=== PATIENT | female | born 1960 | race Caucasian/White ===

== ENCOUNTER 2017-12-01 21:00 | Emergency (ER) | payer OTHER ==
[2017-12-01] MEDS ORDERED: DIPHTH,PERTUSS(ACELL),TET 0.5 ML DISP.SYRIN IM ONE (21:49)
--- NOTE | 2017-12-01 21:49 | PDOC ---
History of Present Illness - General Chief Complaint: Injury Stated Complaint: RIGHT CALF PUNCTURE WOUND Time Seen by Provider: 12/01/17 21:49 History Source: Patient Exam Limitations: No Limitations - History of Present Illness Initial Comments: 12/01/17 22:57 This is a 56-year-old female who comes in complaining of a puncture wound to her lateral right calf. Patient was taking out the garbage when something sharp in the garbage punctured her leg. Patient comes in for a tetanus shot. PAST MEDICAL HISTORY: no significant history PAST SURGICAL HISTORY: no significant history FAMILY HISTORY: no pertinant history SOCIAL HISTORY: Pt lives with family and is employed. MEDICATIONS: reviewed ALLERGIES: As per nursing notes Review of Systems General: No fevers or chills, no weakness, no weight loss HEENT: No change in vision. No sore throat,. No ear pain CardioVascular: No chest pain or shortness of breath Respiratory:No cough, or wheezing. Gastrointestinal: no nausea, vomitting, diarrhea or constipation, No rectal bleeding Genitourinary: No dysuria, hematuria, or frequency Musculoskeletal: No joint or muscle pain or swelling Neurologic: No headache, vertigo, dizziness or loss of consciousness Psychiatric: nor depression Skin: Puncture wound as per history of present illness Endocrine: no increased thirst or abnormal weight change Allergic: no skin or latex allergy All other systems reviewed and normal GENERAL: The patient is awake, alert, and fully oriented, in no acute distress. HEAD: Normal with no signs of trauma. EYES: Pupils equal, round and reactive to light, extraocular movements intact, sclera anicteric, conjunctiva clear. EXTREMITIES: Right thigh: There is a superficial puncture wound approximately one half of a centimeter in length. There is no active bleeding at this time. Neurovascular distal intact. NEUROLOGICAL: Normal speech, normal gait. grossly intact PSYCH: Normal mood, normal affect. SKIN: Warm, Dry, normal turgor, no rashes or lesions noted. Procedure note Puncture wound was loosely closed with a Steri-Strip patient tolerated well Assessment and plan: This is a 56-year-old female with a puncture wound to her lateral right leandro. Puncture wound was loosely closed with a Steri-Strip as I did not want to close it tightly given the nature of the injury which was dirty garbage. Patient was updated on her tetanus shot and started on Keflex to prevent infection. Patient has a primary care doctor to follow-up with. Past History - Past Medical History Allergies/Adverse Reactions: Allergies Allergy/AdvReac Type Severity Reaction Status Date / Time No Known Allergies Allergy Verified 12/01/17 21:54 Home Medications: Ambulatory Orders Amlodipine Besylate [Norvasc -] 10 mg PO DAILY 12/01/17 Aspirin Coated [Ecotrin -] 81 mg PO DAILY 12/01/17 Cephalexin [Keflex] 500 mg PO QID #20 capsule 12/01/17 Rosuvastatin Calcium [Crestor] 5 mg PO DAILY 12/01/17 *DC/Admit/Observation/Transfer Diagnosis at time of Disposition: Puncture wound of leg not thigh, right Qualifiers: Encounter type: initial encounter Qualified Code(s): S81.831A - Puncture wound without foreign body, right lower leg, initial encounter - Discharge Dispostion Disposition: HOME Condition at time of disposition: Good Decision to Admit order: No - Prescriptions Prescriptions: Cephalexin [Keflex] 500 mg PO QID #20 capsule - Referrals Referrals: Delio Walls [Primary Care Provider] - - Patient Instructions Additional Instructions: Take Keflex one tablet 4 times a day for 5 days to prevent infection. Return to the emergency department immediately with ANY new, persistent or worsening symptoms. Continue any medications as previously prescribed by your physician. You should follow up with your primary doctor as soon as possible regarding today's emergency department visit. . Please make sure your doctor reviews the results of your emergency evaluation. Thank you for coming to the Emergency Department today for your care. It was a pleasure to see you today. Please note that your evaluation is INCOMPLETE until you follow-up with your doctor. - Post Discharge Activity
[2017-12-01] MEDS ORDERED: CEPHALEXIN MONOHYDRATE 500 MG CAPSULE (UD) PO ONE (21:54)
[2017-12-01 22:04] VITALS: BP 118/87; PULSE 80; TEMP 99.1; BMI 25.4
[2017-12-01] MEDS ORDERED: CEPHALEXIN MONOHYDRATE 500 MG CAPSULE (UD) ONE (22:05)
== END 2017-12-01 22:14 | disposition home or self-care (01) ==
LOC: FER 21:00
PROC: 3E0234Z Introduction of Serum, Toxoid and Vaccine into Muscle, Percutaneous Approach (ICD-10-PCS; principal; 2017-12-01)
DX: S81.831A Puncture wound without foreign body, right lower leg, initial encounter (principal); W22.8XXA Striking against or struck by other objects, initial encounter; Y93.89 Activity, other specified; Y92.89 Other specified places as the place of occurrence of the external cause
CPT/HCPCS: 90715; 99282-25

== ENCOUNTER 2018-10-07 13:01 | Day surgery (SDC) | payer OTHER ==
[2018-10-06 13:31] VITALS: BMI 26.4
[2018-10-07] MEDS ORDERED: MIDAZOLAM HCL 2 MG/2 ML SINGLE DOSE VIAL ONE ×2 (14:26→15:15)
[2018-10-07] MEDS ORDERED: ROPIVACAINE HCL 0.5% 30ML VIAL ONE (14:26)
[2018-10-07] MEDS ORDERED: ONDANSETRON 4 MG/2 ML VIAL IVPUSH PRN (15:10)
[2018-10-07] MEDS ORDERED: PROMETHAZINE HCL 25 MG/1 ML VIAL IVPUSH PRN (15:10)
[2018-10-07] MEDS ORDERED: oxyCODONE HCL 5 MG TABLET PO PRN ×2 (15:10)
[2018-10-07] MEDS ORDERED: PROPOFOL 20 ML ONE ×2 (15:17)
[2018-10-07] MEDS ORDERED: GUM MASTIC/STORAX/MSAL/ALCOHOL 1 DRP DROPSBTL MC ONE (15:57)
[2018-10-07 16:26] VITALS: TEMP 97.5
[2018-10-07 17:49] VITALS: BP 114/72; PULSE 71
--- NOTE | 2018-10-09 13:58 | OP ---
DATE OF OPERATION: 10/07/2018 PREOPERATIVE DIAGNOSIS: LEFT comminuted intraarticular displaced distal radius fracture. POSTOPERATIVE DIAGNOSIS: LEFT comminuted intraarticular displaced distal radius fracture. OPERATIVE PROCEDURE: Open reduction, internal fixation of LEFT comminuted intraarticular displaced distal radius fracture with internal fixation of 3 or more fragments and brachioradialis anatomy. SURGEON: Winnie Scherer MD BREAST SURGEON: SAMUEL Lovell ANESTHESIA: Regional. COMPLICATIONS: None. ESTIMATED BLOOD LOSS: Minimal. INDICATION FOR PROCEDURE: The patient is a 57-year-old female with above findings and indicated for operative treatment. Risks, benefits and alternatives were discussed with the patient at length. Proper informed consent was obtained. PROCEDURE: After proper identification of the patient and the correct operative site, the patient was brought to the operating room table and placed supine on the table with all bony prominences well padded. Sedation and regional anesthesia were given. Intravenous antibiotics were given. Timeout procedure was performed. The left upper extremity was prepped and draped in the usual sterile fashion. A well-padded tourniquet was placed with a sterile prep. Esmarch bandage was used to exsanguinate the left upper extremity. Tourniquet inflated to 250 mmHg. A longitudinal incision was made over the volar aspect of the distal radius. The incision was carried sharply through the skin with blunt and sharp dissection through the subcutaneous tissues. Flexor carpi radialis along with the contents of the carpal canal were bluntly and gently retracted in an ulnarward direction for the remainder of the procedure. Pronator quadratus was divided and elevated. a comminuted displaced distal radius fracture. The fracture was attempted to be reduced. However, the pull of brachial radialis made this not possible. Therefore, a subperiosteal dissection with release of the BR tenotomy was performed. This allowed the radial styloid fragments to reduce. The fracture was reduced manually and then an Acumed Acu-Loc plate was placed with distal locking screws and proximal nonlocking screws to secure it and maintain reduction. Radiographs were taken and confirmed proper placement of all hardware as well as size of hardware and proper reduction of the fracture. Distal radioulnar joint and SL interval were stable. The wound was irrigated with saline and repaired with 4-0 Vicryl and 4-0 Monocryl suture. Steri-Strips, sterile dressing and a wrist splint were placed. Patient reversed from anesthesia and brought to the recovery room in stable condition. Miles Palma, the emergency medicine physician assistant, was integral throughout the procedure. Procedure could not have been performed without a skilled operative emergency medicine physician assistant. WINNIE SCHERER M.D. [id number] MTDD
== END 2018-10-07 17:49 | disposition home or self-care (01) ==
LOC: FASU 13:01
PROVIDERS: ATTEND Orthopaedic Surgery Hand Surgery
PROC: 0LN60ZZ Release Left Lower Arm and Wrist Tendon, Open Approach (ICD-10-PCS; 2018-10-07)
PROC: 0PSJ04Z Reposition Left Radius with Internal Fixation Device, Open Approach (ICD-10-PCS; principal; 2018-10-07 15:20)
DX: S52.572A Other intraarticular fracture of lower end of left radius, initial encounter for closed fracture (principal); X58.XXXA Exposure to other specified factors, initial encounter; Y93.9 Activity, unspecified; Y92.9 Unspecified place or not applicable
CPT/HCPCS: 73110-TC-LT-FY; 94760

== ENCOUNTER 2018-10-10 11:35 | Emergency (ER) | payer OTHER ==
[2018-10-10 11:43] VITALS: BP 118/80; PULSE 89; TEMP 98.8; BMI 26.4
--- NOTE | 2018-10-10 11:51 | PDOC ---
History of Present Illness - General Chief Complaint: Wound Stated Complaint: need new wraping for broken wrist Time Seen by Provider: 10/10/18 11:50 History Source: Patient Exam Limitations: No Limitations - History of Present Illness Initial Comments: 10/10/18 11:51 57y F sp repair of colles fracture from dr. germain on the . Had the dressing revised due to it being to itchy/prickly by dr. broussard yesterday, but notse her dressing is too bulky and was referred by ortho to ED for assessment. denies any pain, numnbess/tingling/weakness Past History - Past Medical History Allergies/Adverse Reactions: Allergies Allergy/AdvReac Type Severity Reaction Status Date / Time No Known Drug Allergies Allergy Verified 10/10/18 11:37 Home Medications: Ambulatory Orders Amlodipine Besylate [Norvasc -] 10 mg PO DAILY 12/01/17 Aspirin Coated [Ecotrin -] 81 mg PO DAILY 12/01/17 Rosuvastatin Calcium [Crestor] 5 mg PO DAILY 12/01/17 Fluoxetine HCl [Prozac] 20 mg PO DAILY 10/06/18 Naproxen Sodium [Aleve] 220 mg PO PRN PRN 10/07/18 Anemia: No Asthma: No Cancer: No Cardiac Disorders: No CVA: Yes (RIGHT SIDE CAROTID DISSECTION 2010,FULL RECOVERY) COPD: No CHF: No Dementia: No Diabetes: No GI Disorders: No Disorders: No HTN: Yes Hypercholesterolemia: Yes Liver Disease: No Seizures: No Thyroid Disease: No - Surgical History Abdominal Surgery: No Appendectomy: No Cardiac Surgery: No Cholecystectomy: No Lung Surgery: No Neurologic Surgery: No Orthopedic Surgery: Yes (RIGHT HAND TRIGGER FINGER 2014) - Suicide/Smoking/Psychosocial Hx Smoking History: Never smoked Have you smoked in the past 12 months: No Information on smoking cessation initiated: No Hx Alcohol Use: No Drug/Substance Use Hx: No Substance Use Type: Alcohol Hx Substance Use Treatment: No Review of Systems - Review of Systems Able to Perform ROS?: Yes Comments:: 10/10/18 12:23 ROS: Musculskelatal - no reported back pain, joint swelling skin - no reported bruising, erythema, rash neurological: no reported numbness, focal weakness, tingling, ataxia, *Physical Exam - Vital Signs Last Vital Signs Temp Pulse Resp BP Pulse Ox 98.8 F 89 20 118/80 99 04/13/19 11:36 10/10/18 11:36 10/10/18 11:36 10/10/18 11:36 10/10/18 11:36 - Physical Exam Comments: 10/10/18 12:23 General: wella papering, in no distress MSK: splint in place on L arm, sensation intact, motor intact, no erythema, induration Procedures - Consent Consent obtained: Verbal - Splinting Splint Location: Right: Wrist Pre-Proc Neuro Vasc Exam: normal Hand-Made Type: orthoglass Splint Type: Yes: Wrist Post-Proc Neuro Vasc Exam: normal Ed Bandage: 4" Complications: No Medical Decision Making - Medical Decision Making 10/10/18 12:25 splint reapplied no nv complaints will have pt fu with dr. broussard as scheduled return precautions were dsicussed *DC/Admit/Observation/Transfer Diagnosis at time of Disposition: Aftercare for cast or splint check or change - Discharge Dispostion Disposition: HOME Condition at time of disposition: Improved Decision to Admit order: No - Referrals Referrals: Isidoro Broussard MD [Staff Physician] - - Patient Instructions Additional Instructions: Follow up with Dr. Broussard as scheduled Print Language: CAMEROONIAN - Post Discharge Activity
== END 2018-10-10 12:57 | disposition home or self-care (01) ==
LOC: FER 11:35
PROC: 2W3CX1Z Immobilization of Right Lower Arm using Splint (ICD-10-PCS; principal; 2018-10-10)
DX: Z47.89 Encounter for other orthopedic aftercare (principal); I10 Essential (primary) hypertension; E78.00 Pure hypercholesterolemia, unspecified
CPT/HCPCS: 99281-25

== ENCOUNTER 2022-09-16 10:25 | Emergency (ER) | payer OTHER ==
[2022-09-16 10:32] VITALS: BP 135/93; PULSE 72; RESP 15; TEMP 98.7; BMI 27.3
[2022-09-16] MEDS ORDERED: LIDOCAINE 5% TOPICAL PATCH TP ONE (10:32)
[2022-09-16] MEDS ORDERED: KETOROLAC TROMETHAMINE 15 MG/ML VIAL IM ONE (10:32)
[2022-09-16] MEDS ORDERED: ACETAMINOPHEN 500 MG TABLET (FP) PO ONE (10:32)
[2022-09-16] MEDS ORDERED: KETOROLAC TROMETHAMINE 15 MG/ML VIAL ONE (10:39)
[2022-09-16] MEDS ORDERED: ACETAMINOPHEN 500 MG TABLET (FP) ONE (10:39)
[2022-09-16] MEDS ORDERED: LIDOCAINE 5% TOPICAL PATCH ONE (10:40)
[2022-09-16] MEDS ORDERED: LIDOCAINE PATCH REMOVAL MC SCH (22:00)
== END 2022-09-16 11:25 | disposition home or self-care (01) ==
LOC: FER 10:25
DX: R07.81 Pleurodynia (principal)
CPT/HCPCS: 71046-TC-FY; 99284-25